=== PATIENT | female | born 1965 | race Caucasian/White ===

== ENCOUNTER 2018-06-06 16:25 | Emergency (ER) | payer MEDICAID ==
[~2018-06-06] VITALS: Ht 157.5 cm; Wt 63.0 kg
[~2018-06-06 16:25] MED LIST: AMOX500C2 PO; BCP; DEC4T PO; PHEN-716 PO; PHEN-873 PO; PROM25TA14 PO; ZOF4T PO
[2018-06-06] MEDS ORDERED: IBUP-1984 PO (17:18)
[2018-06-06 17:29] VITALS: BP 128/74
== END 2018-06-06 17:31 | disposition home or self-care (01) ==
LOC: ER 16:27
DX: S62.396A Other fracture of fifth metacarpal bone, right hand, initial encounter for closed fracture (principal); Z79.899 Other long term (current) drug therapy; W01.0XXA Fall on same level from slipping, tripping and stumbling without subsequent striking against object, initial encounter; Y93.89 Activity, other specified; Y92.89 Other specified places as the place of occurrence of the external cause; Y99.8 Other external cause status
CPT/HCPCS: 29125; 73130; 99284; A6449

== ENCOUNTER 2019-06-17 16:34 | Emergency (ER) | payer MEDICAID ==
[~2019-06-17] VITALS: Ht 160 cm; Wt 65.0 kg
[~2019-06-17 16:34] MED LIST changes: +PHEN-786 PO; -PHEN-873 PO
[2019-06-17 16:38] VITALS: BP 139/71
--- NOTE | 2019-06-17 16:54 | NUR ---
Pt has bite like garsia on her legs, arms and neck x3 days. Pt states redness is improving but they are itchy. Spots do not appear infected. Spots are small, flat and slightly reddened.
[2019-06-17] MEDS ORDERED: KEN0.1O TP (16:57)
== END 2019-06-17 17:33 | disposition home or self-care (01) ==
LOC: ER 16:35
DX: R21 Rash and other nonspecific skin eruption (principal); F41.9 Anxiety disorder, unspecified; Z98.890 Other specified postprocedural states; Z79.2 Long term (current) use of antibiotics; Z79.899 Other long term (current) drug therapy
CPT/HCPCS: 99283

== ENCOUNTER 2019-07-16 09:37 | Emergency (ER) | payer MEDICAID ==
[~2019-07-16] VITALS: Ht 157.5 cm; Wt 67.0 kg
[~2019-07-16 09:37] MED LIST changes: +KEN0.1O TP
[2019-07-16 09:49] VITALS: BP 133/73
== END 2019-07-16 10:17 | disposition home or self-care (01) ==
LOC: ER 09:38
DX: R60.0 Localized edema (principal); F41.9 Anxiety disorder, unspecified; F10.99 Alcohol use, unspecified with unspecified alcohol-induced disorder; Z86.2 Personal history of diseases of the blood and blood-forming organs and certain disorders involving the immune mechanism; Z98.890 Other specified postprocedural states; Z79.899 Other long term (current) drug therapy; Y90.9 Presence of alcohol in blood, level not specified
CPT/HCPCS: 99281

== ENCOUNTER 2019-12-27 09:53 | Emergency (ER) | payer MEDICAID ==
[~2019-12-27] VITALS: Ht 157.5 cm; Wt 67.0 kg
[~2019-12-27 09:53] MED LIST changes: -KEN0.1O TP
[2019-12-27] MEDS ORDERED: POLOS EACHEYE (11:30)
[2019-12-27 11:39] VITALS: BP 126/91
== END 2019-12-27 11:40 | disposition home or self-care (01) ==
LOC: ER 09:55
DX: H10.12 Acute atopic conjunctivitis, left eye (principal); F41.9 Anxiety disorder, unspecified; F41.0 Panic disorder [episodic paroxysmal anxiety]; Z98.890 Other specified postprocedural states; Z79.2 Long term (current) use of antibiotics; Z79.899 Other long term (current) drug therapy
CPT/HCPCS: 99283